=== PATIENT | female | born 1975 | race Caucasian/White ===

== ENCOUNTER 2019-01-12 06:30 | Day surgery (SDC) | payer OTHER ==
[~2019-01-12] VITALS: Ht 157.5 cm; Wt 64.9 kg
[2019-01-12 07:09] VITALS: BP 124/79
[2019-01-12 11:57] VITALS: BP 120/82
== END 2019-01-12 09:55 | disposition home or self-care (01) ==
LOC: DS 06:30 → OR 09:30 → DS 09:55
PROVIDERS: Anesthesiology Pain Medicine
PROC: 3E0U33Z Introduction of Anti-inflammatory into Joints, Percutaneous Approach (ICD-10-PCS; 2019-01-12)
PROC: BR16YZZ Fluoroscopy of Lumbar Facet Joint(s) using Other Contrast (ICD-10-PCS; 2019-01-12)
PROC: 3E0U3BZ Introduction of Anesthetic Agent into Joints, Percutaneous Approach (ICD-10-PCS; principal; 2019-01-12 08:00)
DX: M47.26 Other spondylosis with radiculopathy, lumbar region (principal); G89.4 Chronic pain syndrome; M51.16 Intervertebral disc disorders with radiculopathy, lumbar region; F41.9 Anxiety disorder, unspecified
CPT/HCPCS: 77003; J2001; J2250; J2310; J3010; J3301; J3490; J7040; Q9967